=== PATIENT | male | born 1950 | race Native Hawaiian/Other Pacific Islander ===

== ENCOUNTER 2019-09-13 15:51 | Emergency (ER) | payer OTHER ==
[~2019-09-13] VITALS: Ht 182.9 cm; Wt 96.2 kg
[2019-09-13 15:57] VITALS: TEMP 98.1
[2019-09-13 16:33] LABS: PLATELET COUNT 196 K/uL (142-355)
[2019-09-13 16:34] LABS: POTASSIUM 3.9 mmol/L (3.6-5.2)
[2019-09-13 16:54] LABS: PARTIAL THROMBOPLASTIN TIME 36.8 SECONDS (24.5-33.6)
[2019-09-13 18:44] VITALS: BP 126/88
== END 2019-09-13 18:45 | disposition home or self-care (01) ==
LOC: ED 15:51
PROVIDERS: Hospitalist
PROC: 2Y41X5Z Packing of Nasal Region using Packing Material (ICD-10-PCS; principal; 2019-09-13)
DX: R04.0 Epistaxis (principal); Z79.01 Long term (current) use of anticoagulants
CPT/HCPCS: 80048; 85027; 85610; 85730; 99283

== ENCOUNTER 2019-09-17 12:09 | Emergency (ER) | payer OTHER ==
[~2019-09-17] VITALS: Ht 182.9 cm; Wt 96.2 kg
[2019-09-17 13:21] VITALS: BP 145/87; TEMP 98.1
== END 2019-09-17 13:21 | disposition home or self-care (01) ==
LOC: ED 12:09
DX: Z48.00 Encounter for change or removal of nonsurgical wound dressing (principal)
CPT/HCPCS: 99281

== ENCOUNTER 2020-04-04 08:07 | Outpatient (CLI) | payer OTHER ==
[2020-04-04 08:57] LABS: POTASSIUM 4.3 mmol/L (3.6-5.2)
[2020-04-04 09:15] LABS: PLATELET COUNT 174 K/uL (142-355)
== END 2020-04-04 18:54 | disposition home or self-care (01) ==
LOC: LABW 08:07
PROVIDERS: ATTEND Internal Medicine
DX: I10 Essential (primary) hypertension (principal); D68.8 Other specified coagulation defects
CPT/HCPCS: 36415; 80053; 80061; 81000; 84439; 84443; 85027; 85610

== ENCOUNTER 2020-05-21 13:07 | Outpatient (CLI) | payer OTHER | END 2020-05-21 23:59 | disposition home or self-care (01) | LOC: INF 13:07 | PROVIDERS: ATTEND Internal Medicine | DX: Z23 Encounter for immunization (principal) | CPT/HCPCS: 96372 ==

== ENCOUNTER 2020-06-18 14:20 | Outpatient (CLI) | payer OTHER | END 2020-06-18 22:03 | disposition home or self-care (01) | LOC: INF 14:20 | PROVIDERS: ATTEND Internal Medicine | DX: Z23 Encounter for immunization (principal) | CPT/HCPCS: 96372 ==